=== PATIENT | male | born 1985 | race Hispanic/Latino ===

== ENCOUNTER → 2020-06-12 | Outpatient (CLI) | payer OTHER ==
--- NOTE | 2020-06-12 17:02 | REP ---
INDICATION: OTHER NON SPECIFIC ABNORMAL FINDING OF LUNG FIELD COMPARISON: None TECHNIQUE: Axial noncontrast images from the thoracic inlet to the upper abdomen with coronal and sagittal reformations. This CT examination was performed using the following dose reduction techniques: Automated exposure control, adjustment of mA and/or kv according to the patient's size, and use of iterative reconstruction technique. FINDINGS: Lung foote are essentially clear. No significant nodule or mass lesion. No consolidation. No effusion. No pneumothorax. Tracheobronchial tree is patent. Mediastinum is normal and without adenopathy. Thoracic aorta is without aneurysm or dissection. No cardiomegaly or pericardial effusion. Surrounding musculoskeletal structures are intact. IMPRESSION: No acute cardiopulmonary process appreciated. <Electronically signed by Brigido Ghosh > 06/12/20 [id number]
== END ==
LOC: M RAD 08:05
PROVIDERS: ATTEND Physician Assistant
DX: R91.8 Other nonspecific abnormal finding of lung field (principal); R06.00 Dyspnea, unspecified

== ENCOUNTER → 2020-06-23 | Outpatient (CLI) | payer OTHER ==
[~2020-06-23] MED LIST: METHACHOLINE KIT (J7674) INH ONE
--- NOTE | 2020-06-23 08:39 | PFTRPT ---
Height: 67.50 Inches Weight: 220.00 Lbs BSA: 2.12 Diagnosis: R06.00 DATE: 06/23/2020 ORDERED BY: TONY Jeong. QUALITY: Study of excellent technical quality. PROCEDURE: Under protocol, methacholine was administered. Even after a maximum dose of 25 mg or 188.875 CDUs, no provocation dose ever achieved. IMPRESSION: Negative methacholine challenge study. MTDD
== END ==
LOC: M CARPUL 07:39
PROVIDERS: ATTEND Physician Assistant
DX: R06.00 Dyspnea, unspecified (principal)